=== PATIENT | female | born 1975 | race Hispanic/Latino ===

== ENCOUNTER 2018-10-31 08:10 | Day surgery (SDC) | payer MEDICAID ==
[~2018-10-31] VITALS: Ht 152.4 cm; Wt 82.1 kg
[~2018-10-31 08:10] MED LIST: SODIUM CHLORIDE 0.9% 1000ML 1,000 ML IV ONE
[2018-10-31 08:27] VITALS: BP 140/87
[2018-10-31] MEDS ORDERED: OMEP40CA37 PO (09:00)
[2018-10-31] MEDS ORDERED: PROPOFOL 1000 MG/100 ML 100 ML IV ONE (09:28)
[2018-10-31 09:59] VITALS: BP 93/55
[2018-10-31 10:04] VITALS: BP 94/51
[2018-10-31 10:09] VITALS: BP 107/70
[2018-10-31 10:19] VITALS: BP 131/85
[2018-10-31 10:23] VITALS: BP 125/94
== END 2018-10-31 10:54 | disposition home or self-care (01) ==
LOC: DAH 08:10 → ENDO 08:10
PROVIDERS: ATTEND Internal Medicine
DX: K57.30 Diverticulosis of large intestine without perforation or abscess without bleeding (principal); K64.9 Unspecified hemorrhoids; K52.9 Noninfective gastroenteritis and colitis, unspecified; K21.0 Gastro-esophageal reflux disease with esophagitis; K29.50 Unspecified chronic gastritis without bleeding; K31.89 Other diseases of stomach and duodenum; J45.909 Unspecified asthma, uncomplicated; Z68.38 Body mass index [BMI] 38.0-38.9, adult; Z98.890 Other specified postprocedural states; Z79.899 Other long term (current) drug therapy; B96.81 Helicobacter pylori [H. pylori] as the cause of diseases classified elsewhere; K76.0 Fatty (change of) liver, not elsewhere classified; Z88.8 Allergy status to other drugs, medicaments and biological substances
CPT/HCPCS: 36415; 43239; 45380; 84703; 88305; A4606; J2704; J7030

== ENCOUNTER 2019-02-20 06:00 | Day surgery (SDC) | payer MEDICAID ==
[~2019-02-20] VITALS: Ht 144.8 cm; Wt 78.0 kg
[~2019-02-20 06:00] MED LIST changes: +OMEP40CA37 PO; +RANI300T7 PO
[2019-02-20 07:05] VITALS: BP 129/67
[2019-02-20] MEDS ORDERED: PROPOFOL 10 MG/ML 20ML VIAL IV ONE (08:23)
[2019-02-20 08:49] VITALS: BP 121/72
[2019-02-20 08:54] VITALS: BP 119/76
[2019-02-20 08:59] VITALS: BP 124/81
[2019-02-20 09:04] VITALS: BP 118/75
== END 2019-02-20 09:20 | disposition home or self-care (01) ==
LOC: ENDO 06:00 → DAH 06:00 → ENDO 09:20
PROVIDERS: ATTEND Internal Medicine
DX: K29.50 Unspecified chronic gastritis without bleeding (principal); K44.9 Diaphragmatic hernia without obstruction or gangrene; K31.89 Other diseases of stomach and duodenum; K22.8 Other specified diseases of esophagus; J45.909 Unspecified asthma, uncomplicated; D64.9 Anemia, unspecified; K21.0 Gastro-esophageal reflux disease with esophagitis; K57.30 Diverticulosis of large intestine without perforation or abscess without bleeding; K76.0 Fatty (change of) liver, not elsewhere classified; R14.2 Eructation; K29.70 Gastritis, unspecified, without bleeding; K64.9 Unspecified hemorrhoids; R93.429 Abnormal radiologic findings on diagnostic imaging of unspecified kidney; Z87.442 Personal history of urinary calculi; Z79.899 Other long term (current) drug therapy; Z88.1 Allergy status to other antibiotic agents; Z90.49 Acquired absence of other specified parts of digestive tract; Z98.890 Other specified postprocedural states; Z68.34 Body mass index [BMI] 34.0-34.9, adult
CPT/HCPCS: 43239; 81025; 88305; A4606; J2704; J7030